=== PATIENT | male | born 2000 | race Native Hawaiian/Other Pacific Islander ===

== ENCOUNTER 2022-09-29 12:07 | Emergency (ER) | payer OTHER ==
[~2022-09-29] VITALS: Ht 180.3 cm; Wt 83.9 kg
[2022-09-29 12:10] VITALS: BP 139/89; TEMP 98.2
== END 2022-09-29 13:45 | disposition home or self-care (01) ==
LOC: ED 12:07
DX: S91.352A Open bite, left foot, initial encounter (principal); S91.351A Open bite, right foot, initial encounter; W54.0XXA Bitten by dog, initial encounter
CPT/HCPCS: 90472; 90715; 99282